=== PATIENT | female | born 2005 | race Caucasian/White ===

== ENCOUNTER 2025-02-18 22:41 | Observation (INO) ==
[2025-02-18] MEDS: TAMSULOSIN HCL 0.4 MG CAP PO ONE (23:50)
[2025-02-18] MEDS: SODIUM CHLORIDE 0.9% 1,000 ML IV ONE (23:50)
[2025-02-18] MEDS: ACETAMINOPHEN 1,000 MG/100 ML VIAL IV STA (23:58)
[2025-02-19 00:08] LABS: Hematocrit (blood only) 33.0 % (37.0-47.0); Hemoglobin 11.4 g/dL (12.0-16.0); Immature Granulocytes # (auto) 0.04 K/uL (0.01-0.20); Immature Granulocytes % (auto) 0.4 %; Mean Corpuscular Hemoglobin 29.5 pg (25.0-34.0); Mean Corpuscular Volume 85.5 fL (80.0-100.0); Platelet Count 281 K/uL (130-400); RDW Standard Deviation 37.2 fL (36.4-46.3); Red Blood Count 3.86 M/uL (4.20-5.40); White Blood Count 11.42 K/ul (4.8-10.8)
[2025-02-19 00:20] LABS: Appearance Urine Clear (Clear); Bacteria Urine Automated 1+ (None Seen); Cast Urine Automated 0-2 /lpf (0-2); Epithelial Cell Urine Auto 0-2 /hpf (0-2); Glucose Urine UA Negative (Negative); RBC Urine Automated 0-2 /hpf (0-2); WBC Urine Automated 0-5 /hpf (0-5)
[2025-02-19 00:25] LABS: Alanine Aminotransferase 13.0 U/L (7-52); Albumin Globulin Ratio 1.6 (0.9-2); Albumin Level 4.2 gm/dl (3.4-5.0); Alkaline Phosphatase 51.0 U/L (34-104); Anion Gap 7.0 (3-11); Bilirubin,Total 0.3 mg/dl (0.2-1.0); Blood Urea Nitrogen 11.0 mg/dl (6-23); Calcium 9.3 mg/dl (8.6-10.3); Carbon Dioxide 25.0 mmol/L (21-32); Chloride 105.0 mmol/L (98-107); Creatinine Clr Calc Pharmacy 88.9 ml/min; Globulin 2.7 gm/dl (2.5-4.0); Glucose 90.0 mg/dl (70-99(Fasting)); Lipase 15.0 U/L (11-82); Potassium 3.8 mmol/L (3.5-5.1); Sodium 137.0 mmol/L (136-145); Total Protein 6.9 gm/dl (6.0-8.3)
[2025-02-19] MEDS: KETOROLAC TROMETHAMINE 15 MG/ML VIAL IV ONE (00:31)
--- NOTE | 2025-02-19 00:33 | Emergency Department Note ---
Impression & Plan Renal calculus, right, Hydroureteronephrosis, Flank Pain ED Provider Note NAME: SUDARSHAN GLOVER AGE: 19 SEX: F : 2005 ARRIVES VIA: Ambulance INFORMANT: Patient, ED PROVIDER(S): Gorge Patten MD CHIEF COMPLAINT: Right flank pain HPI: This is a 19-year-old female sent for right flank pain. Patient states that she was seen at an outside hospital on Monday for right flank pain. She was diagnosed with a 3 mm kidney stone. She will prescribe indications including oxycodone, Zofran. She notes that pain was not resolved. She notes that she took the medication as prescribed but she still persistent pain. She was having nausea and vomiting due to the pain. She reports calling [phone] due to the pain and was given Toradol significantly proved her symptoms. She reports moderate right flank pain still. Nausea is improved. No fevers, chills, urinary burning, frequency, urgency. ROS: See above HPI for pertinent positives & negatives. A total of 10 systems reviewed and were otherwise negative. PAST MEDICAL HISTORY: See Below PAST SURGICAL HISTORY: See Below FAMILY HISTORY: See Below SOCIAL HISTORY: See Below HOME MEDICATIONS: See Below ALLERGIES: See Below VITALS: See Below PHYSICAL EXAMINATION: General: resting comfortably in no acute distress Head: Normocephalic and atraumatic Eyes: Normal inspection, extraocular muscles intact Ear, nose, throat: Normal external exam Neck: Normal range of motion Respiratory: lungs clear to auscultation bilaterally Cardiovascular: Regular rate/rhythm, no murmur GI: soft, nontender, no guarding or rebound,no CVA tenderness Extremities: nontender, moves all extremities, Neuro: The patient awake and alert, appropriately conversive, no focal deficits, symmetric faces Skin: Warm, dry, and intact MEDICAL DECISION MAKING: This is a 19-year-old female here for right flank pain. Patient was diagnosed with a kidney stone, 3 mm yesterday at an outside hospital. She was given pain control which has not improved her symptoms. She has not significant pain today. Will give repeat dose of Tylenol and Toradol here. -Bloodwork is reviewed showing no significant leukocytosis, anemia, electrolyte or creatinine abnormality. Urinalysis is obvious signs of UTI -For multiple hours of observation, patient reevaluated and still in associating pain. She was offered admission and does want to stay as the pain is currently uncontrolled. -Care discussed with Dr. Pastor for admission Differential diagnosis: Renal colic, UTI, sepsis, Independent History obtained from: Roommate Diagnostics interpreted by me: ECG: None Cardiac Monitoring: An order was placed for continuous cardiac monitoring. The monitor shows a rate of 81 with sinus rhythm. Past Med/Surg History Problem List (Updated 02/19/25 @ 05:04 by Gorge Patten MD) Flank Pain (Acute) Renal calculus, right (Acute) Hydroureteronephrosis (Acute) Social History Smoking Status: Never smoker Second Hand Exposure: No; Do You Dip or Chew Tobacco: No; Hx Alcohol Use: No Hx Substance Use: No Preferred Language: Guamanian Communication Ability: Effective Loading Unit Tool Setter Required: No Beliefs That Will Affect Care: None Current Living Situation: Other Current Living Situation Comment: roomates Other Information That Helps Us Care for You: No Feels Safe at Home: Yes Safety Concerns: Feels Safe At This Time Assistive Devices: None Allergies Allergies Allergy/AdvReac Type Severity Reaction Status Date / Time No Known Allergies Allergy Verified 02/19/25 00:04 Home Meds Home Medications Medication Instructions Recorded Confirmed ergocalciferol (vitamin D2) 1,250 1,250 mcg PO WK 02/19/25 02/19/25 mcg (50,000 unit) capsule (Vitamin D2) naproxen 500 mg tablet 500 mg PO BID PRN Pain 02/19/25 02/19/25 ondansetron 4 mg disintegrating 4 mg PO Q6H PRN NAUSEA/VOMITING 02/19/25 02/19/25 tablet oxycodone 5 mg tablet 5 mg PO TID PRN Pain 02/19/25 02/19/25 sertraline 25 mg tablet 25 mg PO HS 02/19/25 02/19/25 Results & Data (ED) Vital Signs Vital Signs - 24 hr 02/18/25 22:46 02/18/25 22:55 02/19/25 02:30 Temperature 36.6 C Temperature Source Oral Pulse Rate 78 81 Pulse Rate [Finger] 118 H Respiratory Rate 19 18 Respiratory Depth Normal Blood Pressure 128/79 Blood Pressure [Right Arm] 118/75 Blood Pressure Mean 95 Blood Pressure Mean [Right Arm] 89 Pulse Oximetry 98 100 Oxygen Delivery Method Room Air Room Air Sepsis Recent Fever Within 48 Hours No Sepsis New/Unexplained Change in Mental Status N/A Sepsis Action Taken by Nursing No Action Required 02/19/25 02:46 Temperature Temperature Source Pulse Rate 88 Pulse Rate [Finger] Respiratory Rate Respiratory Depth Blood Pressure Blood Pressure [Right Arm] Blood Pressure Mean Blood Pressure Mean [Right Arm] Pulse Oximetry Oxygen Delivery Method Sepsis Recent Fever Within 48 Hours Sepsis New/Unexplained Change in Mental Status Sepsis Action Taken by Nursing Laboratory Data 02/18/25 23:48 02/18/25 23:48 Lab Results 02/18/25 Range/Units 23:48 WBC 11.42 H (4.8-10.8) K/ul RBC 3.86 L (4.20-5.40) M/uL Hgb 11.4 L (12.0-16.0) g/dL Hct 33.0 L (37.0-47.0) % MCV 85.5 (80.0-100.0) fL MCH 29.5 (25.0-34.0) pg MCHC 34.5 (32.0-36.0) g/dL RDW Std Deviation 37.2 (36.4-46.3) fL RDW Coeff of Renny 12.0 (11.5-14.5) % Plt Count 281 (130-400) K/uL MPV 9.4 (9.4-12.4) fL Immature Gran % (Auto) 0.4 % Neut % (Auto) 75.6 % Lymph % (Auto) 15.8 % [place] % (Auto) 6.7 % Eos % (Auto) 1.2 % Baso % (Auto) 0.3 % Neut # (Auto) 8.64 H (1.40-6.50) K/uL Lymph # (Auto) 1.80 (1.20-3.40) K/uL [place] # (Auto) 0.77 H (0.11-0.59) K/uL Eos # (Auto) 0.14 (0.00-0.50) K/uL Baso # (Auto) 0.03 (0.00-0.20) K/uL Immature Gran # (Auto) 0.04 (0.01-0.20) K/uL Sodium 137 (136-145) mmol/L Potassium 3.8 (3.5-5.1) mmol/L Chloride 105 (98-107) mmol/L Carbon Dioxide 25 (21-32) mmol/L Anion Gap 7 (3-11) BUN 11 (6-23) mg/dl Creatinine 0.95 (0.6-1.2) mg/dl Est Cr Clr Drug Dosing 88.9 ml/min eGFR 87.96 BUN/Creatinine Ratio 11.6 (10-20) Glucose 90 (70-99(Fasting)) mg/dl Calcium 9.3 (8.6-10.3) mg/dl Total Bilirubin 0.3 (0.2-1.0) mg/dl AST 14 (13-39) U/L ALT 13 (7-52) U/L Alkaline Phosphatase 51 (34-104) U/L Total Protein 6.9 (6.0-8.3) gm/dl Albumin 4.2 (3.4-5.0) gm/dl Globulin 2.7 (2.5-4.0) gm/dl Albumin/Globulin Ratio 1.6 (0.9-2) Lipase 15 (11-82) U/L Urine Color Yellow Urine Appearance Clear (Clear) Urine pH 7.0 (4.5-7.5) Ur Specific [place] 1.004 (1.000-1.030) Urine Protein Negative (Negative) Urine Glucose (UA) Negative (Negative) Urine Ketones Negative (Negative) Urine Blood Negative (Negative) Urine Nitrite Negative (Negative) Urine Bilirubin Negative (Negative) Urine Urobilinogen Negative (Negative) Ur Leukocyte Esterase Trace H (Negative) Urine WBC (Auto) 0-5 (0-5) /hpf Urine RBC (Auto) 0-2 (0-2) /hpf U Hyaline Cast (Auto) 0-2 (0-2) /lpf U Epithel Cells (Auto) 0-2 (0-2) /hpf Urine Bacteria (Auto) 1+ H (None Seen) Urine Comment Administered Medications Parenteral Electrolytes (Plasma-Lyte A Ph 7.4) 1,000 mls @ 125 mls/hr IV .Q8H STA Stop: 02/19/25 11:22 Last Admin: 02/19/25 03:40 Dose: 125 mls/hr Documented By: Ketorolac Tromethamine (Ketorolac Tromethamine 15 Mg/Ml Vial) 15 mg IV Q6H PRN PRN Reason: Pain Stop: 02/24/25 04:30 Last Admin: 02/19/25 04:42 Dose: 15 mg Documented By: HFW Morphine Sulfate (Morphine Sulfate 2 Mg/Ml Carp) 1 - 2 mg IV Q3H PRN PRN Reason: Pain Stop: 03/05/25 03:05 Last Admin: 02/19/25 03:40 Dose: 1 mg Documented By: Ondansetron HCl (Ondansetron 4 Mg Od Tab) 4 mg PO Q6H PRN PRN Reason: NAUSEA/VOMITING Stop: 03/21/25 03:43 Last Admin: 02/19/25 04:21 Dose: 4 mg Documented By: HFW Discontinued Medications Fentanyl Citrate (Fentanyl Citrate Pf 100 Mcg/2 Ml Vial) Confirm Administered Dose 100 mcg .ROUTE .STK-MED ONE Stop: 02/19/25 02:40 Last Admin: 02/19/25 02:43 Dose: Not Given Documented By: Fentanyl Citrate (Fentanyl Citrate Pf 100 Mcg/2 Ml Vial) 50 mcg IV NOW STA Stop: 02/19/25 02:43 Last Admin: 02/19/25 02:44 Dose: 50 mcg Documented By: Sodium Chloride (Nss) 1,000 mls @ 999 mls/hr IV .Q1H1M ONE Stop: 02/19/25 00:28 Last Infusion: 02/19/25 00:53 Dose: Infused Documented By: Admin: 02/18/25 23:50 Dose: 999 mls/hr Documented By: Acetaminophen (Ofirmev) 1,000 mg in 100 mls @ 400 mls/hr IV NOW STA Stop: 02/19/25 00:07 Last Infusion: 02/19/25 00:20 Dose: Infused Documented By: Admin: 02/18/25 23:58 Dose: 400 mls/hr Documented By: Lactated Ringer's (Lr) 1,000 mls @ 125 mls/hr IV .Q8H STA Stop: 02/19/25 11:10 Last Admin: 02/19/25 03:23 Dose: Not Given Documented By: Ceftriaxone Sodium (Rocephin) 2,000 mg in 50 mls @ 100 mls/hr IV NOW STA Stop: 02/19/25 03:47 Last Infusion: 02/19/25 04:16 Dose: Infused Documented By: Admin: 02/19/25 03:40 Dose: 100 mls/hr Documented By: Ketorolac Tromethamine (Ketorolac Tromethamine 15 Mg/Ml Vial) 15 mg IV NOW ONE Stop: 02/19/25 00:28 Last Admin: 02/19/25 00:31 Dose: 15 mg Documented By: Tamsulosin HCl (Tamsulosin Hcl 0.4 Mg Cap) 0.4 mg PO NOW ONE Stop: 02/18/25 23:30 Last Admin: 02/18/25 23:50 Dose: 0.4 mg Documented By: Discharge Plan Visit Data Chief Complaint: Flank Pain Stated Complaint: FLANK PAIN, HX KIDNEY STONES, MEDS NOT WORKING ED Provider: Gorge Patten Discharge Problem: Renal calculus, right, Hydroureteronephrosis, Flank Pain Patient Disposition: Admitted As Inpatient Condition: Fair Discharge Instructions Interventions: ED Discharge Assessment Last Done: 02/19/25 03:44
--- NOTE | 2025-02-19 03:03 | History & Physical Report ---
Date of Service February 19, 2025 Assessment & Plan (1) Hydroureteronephrosis: (2) Renal calculus, right: Plan 19-year-old female PMHx known kidney stone presenting for worsening R flank pain since 1 day [employer]. Patient was seen at an outside hospital and diagnosed with such, provided with pain medications but has had no relief in the pain. Evaluation does have slight leukocytosis 11.42 but with normal renal function. Urine is with LE and 1+ bacteria. Outside imaging completed, pelvic ultrasound showed no ovarian torsion bilaterally, nonspecific trace free fluid in anterior pelvic cul-de-sac, and IUD in place, CTAP asymmetric renal enhancement with mild to moderate R hydroureteronephrosis with obstructing 3 mm calculus R UVJ. #R hydroureteronephrosis/Renal calculus Known R 3mm calculus, diagnosed 2 days [employer] at outside hospital. Was provided w ith pain management, not tolerating. Failure of outpatient management. Worsening pain, with slight leukocytosis. Did not receive IV abx throughout course. Some lower abdomen discomfort. - CBC mild leukocytosis 11.42, stable renal function CMP - CBC, BMP am - UA with LE and 1+ bacteria; pending cx - CTAP (outside hospital) with asymmetric renal enhancement with mild to moderate R hydroureteronephrosis and obstructing 3 mm calculus at the R UVJ - Urine strainer - Plasma-lyte LR @ 125 mL/hr - Acetaminophen prn fever/pain, morphine prn moderate/severe pain - Tamsulosin po - continue - Ceftriaxone 2g IV x 1 -- deferred additional antibiotics, but adjust as medically necessary - Urology consulted - appreciate input + recs #Psych- Sertraline - continue Dispo: Obs, med/sx VTE Prophylaxis: SCDs This document was dictated utilizing AfterSteps. Please excuse any grammatical errors that may be secondary to use of this software. Admission and Anticipated Discharge Date Admission Date: 02/19/2025 History of Present Illness Chief Complaint: R flank pain Primary Care Provider: [facility] 19-year-old female PMHx known kidney stone presenting for worsening R flank pain since 1 day [employer]. Patient was seen at an outside hospital and diagnosed with such, provided with pain medications but has had no relief in the pain. Patient reports that 2 days [employer] she was seen in urgent care for abdominal/flank pain. She started vomiting while there and the provider was concerned that she had a kidney stone and sent her via ambulance to outside facility. At the facility she was diagnosed with a 3 mm stone on the R side, eventually being discharged home with pain management only. States that she was attempting to "ride out the pain" but found herself still in significant discomfort and vomiting the day of arrival. She has not had any fevers or chills. No dysuria, but is having some lower abdominal discomfort. Has not taken her temperature. She states that at this worst, the pain is 7-8 out of 10 on the pain scale, but currently is around a 3 out of 10 on the pain scale. Mainly localized to the right flank, some radiation into the R abdomen. Has not had this happen before. Denies chest pain, SOB, palpitations, diarrhea/constipation, URI symptoms, chills, numbness/tingling, weakness, syncope, or falls. Her friend is present in the room at time of visit with her. ED evaluation was CBC with leukocytosis 11.42, H&H 11.4/33; CMP unremarkable; urine with LE and 1+ bacteria.; Provided with 1L NSS, tamsulosin 0.4 mg p.o., acetaminophen 1 g IV, ketorolac 15 mg IV, and fentanyl 50 mcg IV in ED. Please see Dr. Conroy's attestation for adjustments/additions to treatment plan. Allergies Allergy/AdvReac Type Severity Reaction Status Date / Time No Known Allergies Allergy Verified 02/19/25 00:04 Home Medications Medication Instructions Recorded Confirmed Type ergocalciferol (vitamin D2) 1,250 1,250 mcg PO WK 02/19/25 02/19/25 History mcg (50,000 unit) capsule (Vitamin D2) nitrofurantoin 100 mg PO BID 5 days #10 caps 02/19/25 Rx monohydrate/macrocrystals 100 mg capsule (Macrobid) ondansetron 4 mg disintegrating 4 mg PO Q6H PRN NAUSEA/VOMITING 02/19/25 02/19/25 History tablet sertraline 25 mg tablet 25 mg PO HS 02/19/25 02/19/25 History tamsulosin 0.4 mg capsule 0.4 mg PO DAILY #3 caps 02/19/25 Rx ketorolac 10 mg tablet 10 mg PO Q6H PRN pain #20 tabs 02/20/25 Rx oxycodone 5 mg tablet 5 mg PO Q6H PRN Pain #14 tabs 02/20/25 Rx Past Med/Surg History Problem List (Updated 02/19/25 @ 11:49 by PILAR Allen) Right ureteral stone Flank Pain (Acute) Renal calculus, right (Acute) Hydroureteronephrosis (Acute) Social History Smoking Status: Never smoker Second Hand Exposure: No; Do You Dip or Chew Tobacco: No; Hx Alcohol Use: No Hx Substance Use: No Preferred Language: Pashto Communication Ability: Effective Cloth Bin Packer Required: No Beliefs That Will Affect Care: None Current Living Situation: Other Current Living Situation Comment: roomates Feels Safe at Home: Yes Assistive Devices: None Review of Systems Review of Systems: All systems reviewed & are unremarkable except as noted in Subjective Physical Exam Physical Exam: General: No acute distress Skin: Warm and dry; erythematous nose and cheeks resembling sunburn Head: Normocephalic, atraumatic Eyes: PERRL, conjunctivae clear, sclera non-icteric ENT: External ear and ear canal without swelling; nose atraumatic; good dentition, tongue normal appearance, pharynx normal Neck: Supple, no LAD Cardio: RRR, no M/G/R, S1 and S2 normal Resp: No respiratory distress, Lungs CTA in all lobes bilaterally, no wheezes, rales, or rhonchi Abdomen: Soft, symmetric, nontender; No masses or hepatosplenomegaly; Bowel sounds normoactive; mild CVA tenderness R side MSK: No deformities; pulses palpable and equal; no edema. Neuro: Awake, alert; Sensation intact bilaterally; CN grossly intact Psych: Appropriate mood and affect; good judgement and insight. Female friend present in room at time of visit. Results & Data Results & Data Vital Signs (Past 12 Hours) Vital Signs Temp Pulse Resp BP Pulse Ox O2 Del Method 02/18/25 22:55 81 02/18/25 22:46 36.6 C 78 19 128/79 98 Room Air Laboratory Results 02/18/25 23:48 WBC 11.42 H RBC 3.86 L Hgb 11.4 L Hct 33.0 L MCV 85.5 MCH 29.5 MCHC 34.5 RDW Std Deviation 37.2 RDW Coeff of [place] 12.0 Plt Count 281 MPV 9.4 Immature Gran % (Auto) 0.4 Neut % (Auto) 75.6 Lymph % (Auto) 15.8 [place] % (Auto) 6.7 Eos % (Auto) 1.2 Baso % (Auto) 0.3 Neut # (Auto) 8.64 H Lymph # (Auto) 1.80 [place] # (Auto) 0.77 H Eos # (Auto) 0.14 Baso # (Auto) 0.03 Immature Gran # (Auto) 0.04 Sodium 137 Potassium 3.8 Chloride 105 Carbon Dioxide 25 Anion Gap 7 BUN 11 Creatinine 0.95 Est Cr Clr Drug Dosing 88.9 eGFR 87.96 BUN/Creatinine Ratio 11.6 Glucose 90 Calcium 9.3 Total Bilirubin 0.3 AST 14 ALT 13 Alkaline Phosphatase 51 Total Protein 6.9 Albumin 4.2 Globulin 2.7 Albumin/Globulin Ratio 1.6 Lipase 15 Urine Color Yellow Urine Appearance Clear Urine pH 7.0 Ur Specific [place] 1.004 Urine Protein Negative Urine Glucose (UA) Negative Urine Ketones Negative Urine Blood Negative Urine Nitrite Negative Urine Bilirubin Negative Urine Urobilinogen Negative Ur Leukocyte Esterase Trace H Urine WBC (Auto) 0-5 Urine RBC (Auto) 0-2 U Hyaline Cast (Auto) 0-2 U Epithel Cells (Auto) 0-2 Urine Bacteria (Auto) 1+ H Urine Comment Medications Administered 1L NSS Tamsulosin 0.4 mg p.o. Acetaminophen 1 g IV Ketorolac 15 mg IV Fentanyl 50 mcg IV Code Status & VTE Plan Code Status Full Supervising Physician Co-Signing Physician Notes Attending addendum: I have physically seen this patient, have supervised the medical residents activities, and agree with the H&P unless as otherwise noted. Assessment and Plan: The patient is a 19-year-old female with past medical history including kidney stone, who presents to the emergency department with 1 day of worsening right flank pain. She was seen at [facility] on 02/17, and was told she had a 3 mm right sided kidney stone, and was discharged from the emergency department on oxycodone 5 mg, and Zofran 4 mg to use as needed. Evaluation in the [facility] emergency department this evening shows a WBC of 11.42, normal kidney function, and urine with 1+ bacteria. Review of outpatient workup included a pe lvic ultrasound which showed no ovarian torsion bilaterally, there was nonspecific trace free fluid in the inferior pelvic cul-de-sac, and IUD in place. CT scan abdomen and pelvis showed asymmetric renal enhancement with mild to moderate right hydroureteronephrosis with obstructing 3 mm calculus at the right UVJ. Right hydroureteronephrosis/obstructing 3 mm right UVJ calculus- N.p.o. Follow urine culture and sensitivity Plasma-Lyte at 125 mL/h Acetaminophen 1 g IV every 8 hours as needed for mild pain or fever Morphine 4 mg IV every 3 hours as needed for moderate to severe pain Tamsulosin 0.4 mg p.o. daily Ceftriaxone 2 g IV daily Consult urology Psychiatric- Continue sertraline Remaining orders and notations as noted PG Care Time/CCT Total # of Minutes Spent Total Time Spent with Patient: Total time spent is greater than 50% in coordination of care (as documented) at patient's floor/unit and/or counseling patient: Coding Level of Care Code 04507 INT INP/OBS CARE 2/55MIN Diagnoses Hydroureteronephrosis N13.30 Renal calculus, right N20.0
[2025-02-19] MEDS: LACTATED RINGER'S 1,000 ML IV STA (03:23)
[2025-02-19] MEDS: cefTRIAXone SODIUM 2,000 MG/50 ML BAG IV STA (03:40)
[2025-02-19] MEDS: MoRPHine SULFATE 2 MG/ML CARP IV PRN (03:40)
[2025-02-19] MEDS: PLASMA-LYTE A 1,000 ML IV STA (03:40)
[2025-02-19] MEDS ORDERED: MELATONIN 3 MG TAB PO PRN (03:44)
[2025-02-19] MEDS ORDERED: POLYETHYLENE (MIRALAX) 17 GM PACK PO PRN (03:44)
[2025-02-19] MEDS: ONDANSETRON 4 MG OD TAB PO PRN (04:21)
[2025-02-19] MEDS: KETOROLAC TROMETHAMINE 15 MG/ML VIAL IV PRN (04:42)
[2025-02-19] MEDS: MoRPHine SULFATE 4 MG/ML 1 ML CARP\\VIAL IV PRN ×2 (05:21→07:23)
[2025-02-19 06:28] LABS: Hematocrit (blood only) 30.2 % (37.0-47.0); Hemoglobin 10.6 g/dL (12.0-16.0); Mean Corpuscular Hemoglobin 30.3 pg (25.0-34.0); Mean Corpuscular Volume 86.3 fL (80.0-100.0); Platelet Count 230 K/uL (130-400); RDW Standard Deviation 37.2 fL (36.4-46.3); Red Blood Count 3.50 M/uL (4.20-5.40); White Blood Count 8.46 K/ul (4.8-10.8)
[2025-02-19 07:08] LABS: Anion Gap 7.0 (3-11); Blood Urea Nitrogen 10.0 mg/dl (6-23); Calcium 8.7 mg/dl (8.6-10.3); Carbon Dioxide 25.0 mmol/L (21-32); Chloride 107.0 mmol/L (98-107); Creatinine Clr Calc Pharmacy 76.1 ml/min; Glucose 88.0 mg/dl (70-99(Fasting)); Potassium 3.8 mmol/L (3.5-5.1); Sodium 139.0 mmol/L (136-145)
[2025-02-19] MEDS: ONDANSETRON INJ 2 MG/ML 2 ML VIAL IV PRN (07:23)
[2025-02-19] MEDS: TAMSULOSIN HCL 0.4 MG CAP PO SCH (07:25)
[2025-02-19 10:09] LABS: Iron 17.0 mcg/dl (35-150); Total Iron Binding Cap Calc 337.0 mcg/dl (250-450); Transferrin 241.0 mg/dl (200-360); Transferrin (FE) Percent Satur 5.0 % (15-50)
[2025-02-19 10:25] LABS: Thyroid Stimulating Hormone 4.269 uIu/ml (0.300-4.500)
[2025-02-19 10:31] LABS: Ferritin 63.6 ng/ml (8-388)
[2025-02-19] MEDS: ACETAMINOPHEN 325 MG TAB PO PRN (10:31)
--- NOTE | 2025-02-19 11:55 | Urology Consultation ---
<Statement entered by Joel Oglesby MD - 02/19/25 12:05> Chart reviewed Patient to be assessed with further discussion in preoperative holding area plan reviewed and agree as written. Date of Consultation February 19, 2025 Assessment & Plan (1) Right ureteral stone: (2) Hydroureteronephrosis: (3) Flank Pain: Plan Patient is afebrile and hemodynamically stable Labs today-WBCs 8.46, creatinine 1.10 Continues to have right sided pain, has been managing with medication. Denies any known stone passage. We discussed acute stone management with cystoscopy, ureteroscopy, laser lithotripsy/stone treatment, right ureteral stent placement. Ureteral stents were discussed as well as postoperative issues and pain management. Risks and benefits were discussed. Expected clinical course reviewed. Also discussed option for continued trial of passage. Discussed stone passage rates given size and location. Risks/benefits were discussed. She would like to proceed to the OR for cystoscopy, right retrograde pyelogram, right ureteroscopy, laser lithotripsy/stone treatment, right ureteral stent placement. Risks and benefits to be reviewed with patient by Dr. Oglesby. Keep NPO. Continue tamsulosin, straining all urine, and pain management as needed. Urology to follow. History of Present Illness Attending Physician: Chalo Cummings MD History of Present Illness 19 year old female who presented with severe right flank pain secondary to a known right ureteral stone. History obtained from patient and chart review. Patient reports her pain started over the weekend. She was seen at urgent care initially and sent to the ER at . Patient was diagnosed with an obstructing 3mm right ureteral stone at [facility] on 02/17/25. She report persistent/worsening pain despite pain medication with nausea and vomiting. In the ED, she was afebrile and hemodynamically stable. Labs showing mild leukocytosis 11.42 and normal renal function. Urinalysis with trace leukocyte esterase, 1+ bacteria but otherwise negative. CTAP (outside hospital) with an obstructing 3 mm calculus at the R UVJ. She received ceftriaxone in the ED at 0340 on 02/19. Patient was seen at bedside this morning. Awake and resting in bed on arrival. No acute distress. Still with right sided pain, has been managing with medi cation. Pain returns as medication wears off. No fevers or chills. Some nausea and no vomiting. She has been NPO. Allergies Allergy/AdvReac Type Severity Reaction Status Date / Time No Known Allergies Allergy Verified 02/19/25 00:04 Home Medications Medication Instructions Recorded Confirmed Type ergocalciferol (vitamin D2) 1,250 1,250 mcg PO WK 02/19/25 02/19/25 History mcg (50,000 unit) capsule (Vitamin D2) naproxen 500 mg tablet 500 mg PO BID PRN Pain 02/19/25 02/19/25 History ondansetron 4 mg disintegrating 4 mg PO Q6H PRN NAUSEA/VOMITING 02/19/25 02/19/25 History tablet oxycodone 5 mg tablet 5 mg PO TID PRN Pain 02/19/25 02/19/25 History sertraline 25 mg tablet 25 mg PO HS 02/19/25 02/19/25 History Patient History Social History Smoking Status: Never smoker Second Hand Exposure: No; Do You Dip or Chew Tobacco: No; Hx Alcohol Use: No Hx Substance Use: No Preferred Language: Turkmen Communication Ability: Effective Hotshot Superintendent Required: No Beliefs That Will Affect Care: None Current Living Situation: Other Current Living Situation Comment: roomates Other Information That Helps Us Care for You: No Feels Safe at Home: Yes Safety Concerns: Feels Safe At This Time Assistive Devices: None Review of Systems Review of Systems: All systems reviewed & are unremarkable except as noted in HPI & below Physical Exam Constitutional: no acute distress Respiratory: no respiratory distress and no labored breathing Neurologic: moves all extremities and awake Psychiatric: A+Ox3, euthymic affect Results & Data Vital Signs (Past 12 Hours) Vital Signs Temp Pulse Pulse Resp BP Pulse Ox O2 Del Method 02/19/25 07:00 36.7 C 81 126/88 98 Room Air 02/19/25 04:16 36.5 C 74 16 114/76 98 Room Air 02/19/25 02:46 88 02/19/25 02:30 118 H 18 118/75 100 Room Air PG Care Time/CCT Total # of Minutes Spent Total Time Spent with Patient: Total time spent is greater than 50% in coordination of care (as documented) at patient's floor/unit and/or counseling patient: Coding Level of Care Code 04094 IN/OBS CONSULT LVL 4,60M Diagnoses Right ureteral stone N20.1 Hydroureteronephrosis N13.30 Flank Pain R10.A0
[2025-02-19 12:56] LABS: Folate (Folic Acid),Ser orPlas 8.12 ng/ml (>5.38)
[2025-02-19 12:57] LABS: Vitamin B12 128.0 pg/ml (180-914)
--- NOTE | 2025-02-19 13:24 | Hospitalist Progress Note ---
Date of Service February 19, 2025 Assessment & Plan Admission and Anticipated Discharge Date Admission Date: February 19, 2025 Results & Data Results & Data Vital Signs (Past 12 Hours) Vital Signs Temp Pulse Pulse Resp BP Pulse Ox O2 Del Method 02/19/25 07:00 98.1 F 81 126/88 98 Room Air 02/19/25 04:16 97.7 F 74 16 114/76 98 Room Air 02/19/25 02:46 88 02/19/25 02:30 118 H 18 118/75 100 Room Air PG Care Time/CCT Total # of Minutes Spent Total Time Spent with Patient: Total time spent is greater than 50% in coordination of care (as documented) at patient's floor/unit and/or counseling patient: Coding
[2025-02-19] MEDS ORDERED: ATROPINE SULFATE 0.1 MG/ML 10ML SYR IV PRN (13:42)
[2025-02-19] MEDS ORDERED: ONDANSETRON INJ 2 MG/ML 2 ML VIAL IV PRN (13:42)
--- NOTE | 2025-02-19 13:42 | Anesthesiology Consultation ---
Date of Service February 19, 2025 Assessment & Plan Chart Review Chart Review: Acceptable Risk for Surgery and Patient NOT seen in Pre Admission Testing Consults Requested none ASA ASA2 Proposed Anesthesia Anesthesia Type: General Risk / Benefits Reviewed With: PT / POA / Parent / Guardian, Accepts Plan and Informed Consent Obtained History Surgery Operation Date: 02/19/25 09:10 Proposed Procedures p Cystoscopy, Right Retrograde Pyelogram, Right Stent Placement, Possible Ureteroscopy, Laser Lithotripsy Stone Removal - Joel Oglesby MD Height/Weight Height: 5 ft 3 in Weight: 69.1 kg Allergies Allergy/AdvReac Type Severity Reaction Status Date / Time No Known Allergies Allergy Verified 02/19/25 00:04 Medications Home Medications Medication Instructions Recorded Confirmed Last Taken ergocalciferol (vitamin D2) 1,250 1,250 mcg PO WK 02/19/25 02/19/25 02/16/25 mcg (50,000 unit) capsule (Vitamin D2) naproxen 500 mg tablet 500 mg PO BID PRN Pain 02/19/25 02/19/25 02/18/25 09:00 ondansetron 4 mg disintegrating 4 mg PO Q6H PRN NAUSEA/VOMITING 02/19/25 02/19/25 02/18/25 19:00 tablet oxycodone 5 mg tablet 5 mg PO TID PRN Pain 02/19/25 02/19/25 02/18/25 19:00 sertraline 25 mg tablet 25 mg PO HS 02/19/25 02/19/25 02/17/25 Active Medications Generic Name Dose Route Start Last Admin Trade Name Freq PRN Reason Stop Dose Admin Acetaminophen 650 mg 02/19/25 03:44 02/19/25 10:31 Acetaminophen 325 Mg Tab PO 03/21/25 03:43 650 mg Q4H PRN Administration pain/fever Ketorolac Tromethamine 15 mg 02/19/25 04:31 02/19/25 04:42 Ketorolac Tromethamine 15 Mg/Ml Vial IV 02/24/25 04:30 15 mg Q6H PRN Administration Pain Morphine Sulfate 2 mg 02/19/25 05:14 02/19/25 11:46 Morphine Sulfate 4 Mg/Ml 1 Ml Carp\Vial IV 03/05/25 05:13 2 mg Q2H PRN Administration Pain 3-6/10 Morphine Sulfate 4 mg 02/19/25 05:14 02/19/25 07:23 Morphine Sulfate 4 Mg/Ml 1 Ml Carp\Vial IV 03/05/25 05:13 4 mg Q2H PRN Administration Pain 7+/10 Ondansetron HCl 4 mg 02/19/25 03:44 02/19/25 04:21 Ondansetron 4 Mg Od Tab PO 03/21/25 03:43 4 mg Q6H PRN Administration NAUSEA/VOMITING Ondansetron HCl 4 mg 02/19/25 03:44 02/19/25 07:23 Ondansetron Inj 2 Mg/Ml 2 Ml Vial IV 03/21/25 03:43 4 mg Q6H PRN Administration Nausea NPO Date Last Intake of Fluids: 02/18/25 Time Last Intake of Fluids: 23:00 Last Intake of Fluids Comment: 0700 sip water for meds Date Last Intake of Solids: 02/18/25 Time Last Intake of Solids: 23:00 Social History Smoking Status: Never smoker Do You Dip or Chew Tobacco: No Hx Alcohol Use: No Hx Substance Use: No Physical Exam Vital Signs Last Vital Signs Temp 36.7 C 02/19/25 13:12 Pulse 87 02/19/25 13:12 Resp 16 02/19/25 04:16 BP 113/73 02/19/25 13:12 Pulse Ox 100 02/19/25 13:12 O2 Del Method Room Air 02/19/25 13:12 Constitutional no acute distress ENMT Thyromental Distance: > or= 3.5 Finger Breadths Mallampati Class: I Neck normal visual inspection Respiratory normal respiratory effort Auscultation: lungs clear to auscultation bilaterally Cardiovascular Rate/Rhythm: regular rate and regular rhythm Neurologic moves all extremities Psychiatric Orientation: alert and oriented x 3 Testing Laboratory Results 02/19/25 06:03 02/19/25 06:03 Urine Color Yellow 02/18/25 23:48 Urine Appearance Clear (Clear) 02/18/25 23:48 Urine pH 7.0 (4.5-7.5) 02/18/25 23:48 Ur Specific [place] 1.004 (1.000-1.030) 02/18/25 23:48 Urine Protein Negative (Negative) 02/18/25 23:48 Urine Glucose (UA) Negative (Negative) 02/18/25 23:48 Urine Ketones Negative (Negative) 02/18/25 23:48 Urine Nitrite Negative (Negative) 02/18/25 23:48 Ur Leukocyte Esterase Trace (Negative) H 02/18/25 23:48 Urine WBC (Auto) 0-5 /hpf (0-5) 02/18/25 23:48 Urine RBC (Auto) 0-2 /hpf (0-2) 02/18/25 23:48 U Hyaline Cast (Auto) 0-2 /lpf (0-2) 02/18/25 23:48 U Epithel Cells (Auto) 0-2 /hpf (0-2) 02/18/25 23:48 Urine Bacteria (Auto) 1+ (None Seen) H 02/18/25 23:48 02/19/25 13:28 POC Ur Test NEG
[2025-02-19] MEDS ORDERED: ONDANSETRON INJ 2 MG/ML 2 ML VIAL ONE (14:12)
[2025-02-19] MEDS ORDERED: LIDOCAINE 2% 2 ML VIAL/AMP(20MG/ML) INFIL ONE (14:12)
[2025-02-19] MEDS ORDERED: PROPOFOL IV EMULSION 10 MG/ML 20 ML VIAL IV ONE (14:12)
[2025-02-19] MEDS ORDERED: MIDAZOLAM HCL 1 MG/ML 2ML VIAL ONE (14:31)
[2025-02-19] MEDS: cefOXitin 1,000 MG in DEXTROSE 5 % MINI-B 50 ML IV ONE (14:54)
[2025-02-19] MEDS ORDERED: cefOXitin SOD 1,000 MG VIAL ONE (14:55)
[2025-02-19] MEDS ORDERED: DEXAMETHASONE SOD INJ 4 MG/ML VIAL ONE (14:59)
[2025-02-19] MEDS: DIATRIZOATE MEGLUMINE 30% 100ML VIAL INSTIL PRN (15:04)
--- NOTE | 2025-02-19 15:14 | Operative Report ---
PG Post Operative Report Pre & Post Diagnosis Operation Date: 02/19/25 09:10 Pre-Op Diagnosis: Right ureteral stone, hydroureteronephrosis, flank pain Post-Op Diagnosis: Right ureteral stone, hydroureteronephrosis, flank pain I identified the patient and participated in the time-out.: Yes Procedure Operation Date: 02/19/25 09:10 Actual Procedures p Cystoscopy, Right Retrograde Pyelogram, Basket Stone Extraction - Joel Oglesby MD Surgeon Joel Oglesby MD Section Supervisor na Estimated Blood Loss 0 Findings Consistent with Post-Op Diagnosis small distal right ureteral stone basketted out of ureter Specimens right ureter stone Drains none Description of Procedure SURGEON: Dr. Oglesby TETRYL BLENDER OPERATOR: N/A PREOPERATIVE DIAGNOSIS: right ureteral stone POSTOPERATIVE DIAGNOSIS: Same PROCEDURE: cystoscopy, retrograde pyelogram, ureteral dilation, semi rigid right ureteroscopy, basket retrieval of stone, FINDINGS: 1. right ureteral stone, prompt drainage right collecting system ANESTHESIA: General ESTIMATED BLOOD LOSS: N/A TUBES AND DRAINS: none SPECIMENS: right ureetral stone COMPLICATIONS: none INDICATIONS FOR PROCEDURE: See preoperative diagnosis OPERATIVE DETAIL: The patient was prepped and draped in the usual fashion in the operating room. Antibiotics were given prior to starting the procedure. A well lubricated rigid cystoscope was inserted into the urethral meatus and advanced into the bladder. Care was taken to keep the lumen in the center of view. Cystourethroscopy was completed and unremarkable. The left and right ureteral orifices were identified in the orthotopic positions. The cystoscope was removed and a denny needle tip semi rigid ureteroscope was introduced into the right ureter with minimal resistance. The scope tip was used to dilate the ureteral orifice gently. A small stone was noted and retrieved using a basket. The scope was then reintroduced and the ureter inspected showing minimal trauma a rpg was performed showing a mildly dilated collecting system and torturous ureter. The scope was removed and a further x ray was taken showing drainage of the contrast. The decision was made to defer stent placement in setting minimal instrumentation and a draining collecting system. The bladder was drained. All parts of the cystoscope and ureteroscope were removed intact from the patient. The patient tolerated the procedure well. Please note thatI was present for and directly performed all components of the procedure. I attest to the content of the Intraoperative Record and any orders documented therein. Any exceptions are noted below.
--- NOTE | 2025-02-19 15:47 | Anesthesiology Progress Note ---
Date of Service February 19, 2025 Anesthesia Post Procedure Vital Signs Vital Signs: Temp Pulse Pulse Pulse Resp BP BP 02/19/25 15:40 36.5 C 76 20 99/55 L 02/19/25 15:30 74 16 94/48 L 02/19/25 15:20 74 16 95/46 L 02/19/25 15:13 36.0 C L 76 16 94/42 L 02/19/25 13:12 36.7 C 87 113/73 02/19/25 07:00 36.7 C 81 126/88 02/19/25 04:16 36.5 C 74 16 114/76 02/19/25 02:46 88 02/19/25 02:30 118 H 18 118/75 02/18/25 22:55 81 02/18/25 22:46 36.6 C 78 19 128/79 Pulse Ox O2 Del Method O2 Flow Rate 02/19/25 15:40 98 Room Air 02/19/25 15:30 100 Oxymask 6 02/19/25 15:20 100 Oxymask 6 02/19/25 15:13 100 Oxymask 6 02/19/25 13:12 100 Room Air 02/19/25 07:00 98 Room Air 02/19/25 04:16 98 Room Air 02/19/25 02:46 02/19/25 02:30 100 Room Air 02/18/25 22:55 02/18/25 22:46 98 Room Air Pain Intensity Right Flank: Pain Intensity: 4 Transfer of Care Handoff Completed per policy Notes Mental Status: alert / awake / arousable Patient Amnestic to Procedure: Yes Nausea / Vomiting: adequately controlled Pain: adequately controlled Airway Patency, RR, SpO2: stable & adequate BP & HR: stable & adequate Hydration State: stable & adequate Anesthetic Complications: no major complications apparent
[2025-02-19] MEDS: TAMSULOSIN HCL 0.4 MG CAP PO ONE (16:13)
--- NOTE | 2025-02-19 17:00 | Fluoroscopy Report ---
FL retrograde includes kub CLINICAL HISTORY: ADD ON STENT COMPARISON STUDY: None FLUOROSCOPY TIME: 6 FLUOROSCOPY IMAGES: 4 EXPOSURE DOSE: 1 mGy FINDINGS: Fluoroscopy was provided for urologic procedure. IMPRESSION: Intraoperative fluoroscopy. ACT 112: Negative or not required by law. Electronically signed by: Percy Gonzalez M.D. 02/19/2025 4:59 PM
[2025-02-19 18:02] VITALS: RESP 18; TEMP 97.9; O2SAT 97
[2025-02-19 19:16] VITALS: BP 100/64
--- NOTE | 2025-02-19 19:52 | Discharge Summary ---
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 Patient was dx at outside facility where she received medications to help with pain and aid in the passage of the stone. Pt received CT at outside hospital revealed 3mm stone at UVJ, with moderate R hydroureteronephrosis. Pt was admitted to the hospital and received Flomax and pain management. Urology took pt to OR for cystoscopy w/ right retrograde pyelogram and basket stone extraction where the stone was removed. Pt was d/c home with flomax and Macrobid #Psych- Pt should continue Sertraline as Rx. 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 Patient was seen at an outside hospital and diagnosed with such, provided with pain medications but has had no relief in the pain. Patient reports that 2 days COLLABORATING SUPERVISING PHYSICIAN she was seen in urgent care for abdominal/flank pain. She started vomiting while there and the provider was concerned that she had a kidney stone and sent her via ambulance to outside facility. At the facility she was diagnosed with a 3 mm stone on the R side, eventually being discharged home with pain management only. States that she was attempting to "ride out the pain" but found herself still in significant discomfort and vomiting the day of arrival. She has not had any fevers or chills. No dysuria, but is having some lower abdominal discomfort. Has not taken her temperature. She states that at this worst, the pain is 7-8 out of 10 on the pain scale, but currently is around a 3 out of 10 on the pain scale. Mainly localized to the right flank, some radiation into the R abdomen. Has not had this happen before. Denies chest pain, SOB, palpitations, diarrhea/constipation, URI symptoms, chills, numbness/tingling, weakness, syncope, or falls. Her friend is present in the room at time of visit with her. ED evaluation was CBC with leukocytosis 11.42, H&H 11.4/33; CMP unremarkable; urine with LE and 1+ bacteria.; Provided with 1L NSS, tamsulosin 0.4 mg p.o., acetaminophen 1 g IV, ketorolac 15 mg IV, and fentanyl 50 mcg IV in ED. Please see Dr. Conroy's attestation for adjustments/additions to treatment plan. Discharge Exam General: Pt is a 19 y/o WD/WN female in NAD in bed. VS: reviewed - unremarkable Skin: Warm and dry; no lesions or ulcerations Respiratory: CTA bilat, no adventitious sounds noted. Chest expansion is full and symmetrical Cardio: RRR no murmurs Abdomen: Round, normoactive BS x4, nontender to palpation MSK: FROM of extremities, no deformities Extremities: no edema Neuro: A&Ox4, cooperative Discharge Plan Discharge Items Patient Disposition: Home - Self-Care Reason For Visit: R HYDROURETERONEPHROSIS, FAILURE OPT TREATMENT Discharge Diagnosis: Renal Calculi at UVJ Condition on Discharge: Fair Activity: Resume your previous activity Non-emergency contact: Primary Care Provider Call non-emergency contact if: you have any medication questions, your symptoms worsen and your pain is worsening Follow-up/Referrals: [facility] [Primary Care Provider] - (F/U w/in one week ) Diet: Regular Addtl Attending Provider Instructions: You were admitted to the hospital after failing outpatient management for a right kidney stone. When you were admitted to the hospital and received Tamsulosin to help with the passage of the stone in addition to pain management. Urology was consulted and was able to move the stone directly. Upon discharge, you will be sent home with two medications as listed below. The Urology office will be reaching out to you to schedule a follow-up appointment. While you were here, it was discovered you have Iron deficiency and B12 deficiency; it is important to F/U with your PCP about these issues. Medications: Your medication list has been reviewed and reconciled upon discharge to ensure accuracy and continuity of care. An updated list of all your medications is included with your hospital discharge paperwork. Please review this list closely, and make note of any changes. We sent a new medication called Flomax to your pharmacy. Take once a day for the next 3 days. Start tomorrow morning. This will help relax your ureter to help with the passage of fluid. We sent a new medication called Macrobid to your pharmacy. Take twice a day for the next 5 days. Starting tomorrow AM. This is an antibiotic to prevent infection. Take your medications as instructed; do not skip a dose of your medicines. Make sure all of your doctors know every medicine you are taking (including nyrh-eaa-[id number] medicines, vitamins, and supplements). Call your primary care provider before taking any new medicines (including over- the-counter medicines, vitamins, and supplements), because some of these may interact with your current medications, or may make your symptoms worse. Tell your primary care provider if you cannot afford your medications. Activity: You can do normal everyday activities as your body allows. Take rest breaks if you feel tired. Do not overexert. Stop activity if you have pain, shortness of breath or feel dizzy. Follow-up appointments: Make an appointment with your primary care physician within one week of discharge. A copy of this summary will be sent to them. Every time you see your primary care physician, or any other doctor, bring your medication list, and a list of questions. CONTACT YOUR PRIMARY CARE PROVIDER if you experience any of the following: Shortness of breath or difficulty breathing Fevers or chills Feeling tired with normal activity or experiencing dizziness or fainting Difficulty following your treatment plan, or difficulty taking medications CALL 911 OR GO TO THE EMERGENCY DEPARTMENT if you experience any of the following: Severe abdominal pain or nausea/vomiting Severe chest pain, or chest pain that radiates (moves) to your jaw or arm Sudden, severe shortness of breath or difficulty breathing Thank you for allowing us to participate in your care. Pending Studies at Discharge: No Stand-Alone Forms: My [facility] VR[facility], Work/School Release, Smoking Cessation Medications and DC Order Prescriptions: New nitrofurantoin monohyd/m-cryst [Macrobid] 100 mg capsule 100 mg PO BID 5 Days Qty: 10 0RF Rx Instructions: must administer with a meal/food tamsulosin 0.4 mg capsule 0.4 mg PO DAILY Qty: 3 0RF Continued sertraline 25 mg Tablet 25 mg PO HS ergocalciferol (vitamin D2) [Vitamin D2] 1,250 mcg (50,000 unit) Capsule 1,250 mcg PO WK Rx Instructions: SUNDAYS ondansetron 4 mg Tablet,Disintegrating 4 mg PO Q6H PRN (Reason: NAUSEA/VOMITING) naproxen 500 mg Tablet 500 mg PO BID PRN (Reason: Pain) oxycodone 5 mg Tablet 5 mg PO TID PRN (Reason: Pain) Discharge Orders: Discharge Order (Routine); Ordered 02/19/25 Ordered By: Analisa Ortiz/Other Patient Handouts: Anatomy of the Female Urinary Tract, Understanding Kidney Stones, Treating Kidney Stones: Medicines, Preventing Kidney Stones, Understanding Hydronephrosis Admission Data Admit Date/Time: 02/19/25 03:06 Attending Provider: Chalo Cummings Admit Provider: Jose Conroy Primary Care Provider: [facility] Other Providers: Jose Conroy; Joel Oglesby Other Interventions: Discharge Summary Assessment (RN) Last Done: 02/19/25 20:02 Hospital Stay Data Consultations 02/19/25 01:57 ED Decision to Admit Stat 02/19/25 03:44 Consult Urology Routine Procedures Performed Operation Date: 02/19/25 09:10 Actual Procedures p Cystoscopy, Right Retrograde Pyelogram, Basket Stone Extraction(Right) - Joel Oglesby MD Diagnostic Imagining Performed 02/19/25 FL retrograde includes kub Routine Pending Results Patient Have Any Pending Studies at Discharge: No Discharge Instructions Given to Patient (Per Discharging Provider) You were admitted to the hospital after failing outpatient management for a right kidney stone. When you were admitted to the hospital and received Tamsulosin to help with the passage of the stone in addition to pain management. Urology was consulted and was able to move the stone directly. Upon discharge, you will be sent home with two medications as listed below. The Urology office will be reaching out to you to schedule a follow-up appointment. While you were here, it was discovered you have Iron deficiency and B12 deficiency; it is important to F/U with your PCP about these issues. Medications: Your medication list has been reviewed and reconciled upon discharge to ensure accuracy and continuity of care. An updated list of all your medications is included with your hospital discharge paperwork. Please review this list closely, and make note of any changes. We sent a new medication called Flomax to your pharmacy. Take once a day for the next 3 days. Start tomorrow morning. This will help relax your ureter to help with the passage of fluid. We sent a new medication called Macrobid to your pharmacy. Take twice a day for the next 5 days. Starting tomorrow AM. This is an antibiotic to prevent i nfection. Take your medications as instructed; do not skip a dose of your medicines. Make sure all of your doctors know every medicine you are taking (including nktd-tih-oawjaeu medicines, vitamins, and supplements). Call your primary care provider before taking any new medicines (including over- the-counter medicines, vitamins, and supplements), because some of these may interact with your current medications, or may make your symptoms worse. Tell your primary care provider if you cannot afford your medications. Activity: You can do normal everyday activities as your body allows. Take rest breaks if you feel tired. Do not overexert. Stop activity if you have pain, shortness of breath or feel dizzy. Follow-up appointments: Make an appointment with your primary care physician within one week of discharge. A copy of this summary will be sent to them. Every time you see your primary care physician, or any other doctor, bring your medication list, and a list of questions. CONTACT YOUR PRIMARY CARE PROVIDER if you experience any of the following: Shortness of breath or difficulty breathing Fevers or chills Feeling tired with normal activity or experiencing dizziness or fainting Difficulty following your treatment plan, or difficulty taking medications CALL 911 OR GO TO THE EMERGENCY DEPARTMENT if you experience any of the following: Severe abdominal pain or nausea/vomiting Severe chest pain, or chest pain that radiates (moves) to your jaw or arm Sudden, severe shortness of breath or difficulty breathing Thank you for allowing us to participate in your care. Total Time Total Time Spent Total Time Spent (In Minutes): Time spent day of discharge 35 minutes including direct patient care, medication reconciliation, documentation, review of labs and images, and coordination of care. Coding Level of Care Code 95474 INP/OBS DISCH >30 MIN Diagnoses Hydroureteronephrosis N13.30 Renal calculus, right N20.0
[2025-02-19 20:05] VITALS: PULSE 72
[2025-02-19] MEDS ORDERED: SERTRALINE HCL 50 MG TABLET PO SCH (21:00)
[2025-02-20] MEDS ORDERED: TAMSULOSIN HCL 0.4 MG CAP PO SCH (09:00)
[2025-02-28 19:12] LABS: Source RIGHT URETERAL STONE
== END 2025-02-19 20:35 | disposition home or self-care (01) ==
LOC: ED 22:41 → EDINP 22:41 → SUATTDRO 02-19 03:06 → 3E 02-19 03:44